=== PATIENT | female | born 1960 | race Caucasian/White ===

== ENCOUNTER 2024-06-12 18:02 | Emergency (ER) | payer OTHER ==
[~2024-06-12] VITALS: Ht 157.5 cm; Wt 54.0 kg
[2024-06-12] VITALS (24 sets, daily range): BP systolic 85–160; BP diastolic 47–124
[~2024-06-12 18:02] MED LIST: IBUPROFEN600 MG PO
[2024-06-12] MEDS ORDERED: SODIUM CHLORIDE 0.9% 1,000 ML IV ONE (18:35)
[2024-06-12] MEDS ORDERED: ORPHENADRINE CITRATE 30 MG/ML AMP IV ONE (18:35)
[2024-06-12] MEDS ORDERED: KETOROLAC TROMETHAMINE 30 MG/ML SDV IV ONE (18:35)
[2024-06-12] MEDS ORDERED: Diph, Acellular Pertussis, Tet 0.5 ML/VIAL (Tdap) SDV IM ONE (18:35)
[2024-06-12 19:03] LABS: BASO% 0.6 % (0-3); EOS% 0.6 % (0-8); HEMATOCRIT 39.5 % (37.0-47.0); IMMATURE GRANULOCYTES 0.8 % (0.0-5.0); LYMPH% 26.2 % (15-41); MEAN CELL VOLUME 94.7 fL CALC (80.0-100.0); MEAN CORPUSCULAR HGB 31.2 pG CALC (26.0-32.0); MEAN CORPUSCULAR HGB CONC 32.9 g/dL CAL (32.0-36.0); MONO% 6.6 % (2-13); NEUT# 4.72 thou/uL (2.00-7.15); NEUT% 65.2 % (42-76); RED BLOOD COUNT 4.17 mill/uL (4.20-5.60); RED CELL DISTRI WIDTH 12.5 % (11.5-15.5)
[2024-06-12 19:14] LABS: ALBUMIN 4.3 g/dL (3.2-5.0); BILIRUBIN, TOTAL 0.5 mg/dL (0.02-1.3); CREATININE 0.6 mg/dL (0.5-1.0); POTASSIUM 4.1 mmol/l (3.5-5.1); TOTAL PROTEIN 6.7 g/dL (6.3-8.2)
[2024-06-12] MEDS ORDERED: ONDANSETRON HCl 4 MG/2 ML SDV IV ONE (20:20)
[2024-06-12] MEDS ORDERED: MORPHINE SULFATE 4 MG/ML VIAL IV ONE (20:20)
[2024-06-12 23:01] LABS: URINE BILIRUBIN - DIPSTICK Negative (NEGATIVE); URINE BLOOD DIPSTICK Negative (NEGATIVE); URINE CLARITY Clear; URINE COLOR Yellow; URINE GLUCOSE - DIPSTICK Negative (NEGATIVE); URINE KETONE Trace mg/dL (NEGATIVE); URINE LEUK ESTERASE Negative (Negative); URINE NITRITE - DIPSTICK Negative (Negative); URINE PH 6.5 (4.5-8.0); URINE PROTEIN - DIPSTICK Negative (NEG-TRACE); URINE UROBILINOGEN - DIPSTICK 0.2 E.U./dL (0.2)
[2024-06-12] MEDS ORDERED: FLEXERIL5 M1 PO (23:35)
[2024-06-12] MEDS ORDERED: PERCOCET 5/325M1 TAB PO (23:35)
[2024-06-13] VITALS: BP 113/64
[2024-06-13 00:16] VITALS: BP 101/58
[2024-06-13] MEDS ORDERED: oxyCODONE 5MG/ ACETAMINOPHEN 325MG TAB PO ONE (00:25)
== END 2024-06-13 00:35 | disposition home or self-care (01) | DRG 566 ==
LOC: ED 18:02
PROVIDERS: Nurse Practitioner
PROC: 2W3RX1Z Immobilization of Left Lower Leg using Splint (ICD-10-PCS; principal; 2024-06-12)
DX: S22.20XA Unspecified fracture of sternum, initial encounter for closed fracture (principal); S92.352A Displaced fracture of fifth metatarsal bone, left foot, initial encounter for closed fracture; S80.812A Abrasion, left lower leg, initial encounter; S80.811A Abrasion, right lower leg, initial encounter; T14.8XXA Other injury of unspecified body region, initial encounter; I45.10 Unspecified right bundle-branch block; V03.00XA Pedestrian on foot injured in collision with car, pick-up truck or van in nontraffic accident, initial encounter; Y92.481 Parking lot as the place of occurrence of the external cause
CPT/HCPCS: 90715; J2360; J2405; Q9967